=== PATIENT | male | born 1970 | race Caucasian/White ===

== ENCOUNTER 2017-08-05 05:09 | Emergency (ER) | payer MEDICAID ==
[~2017-08-05] VITALS: Ht 188 cm; Wt 113.6 kg
[~2017-08-05 05:09] MED LIST: CLON2TAB11 PO; DAPT500V6 IV; DIVA500T2 PO; DOCU100C23 PO; QUET-1 PO; TRAZ-146 PO
[2017-08-05 05:15] VITALS: BP 116/65
== END 2017-08-05 06:00 | disposition left against medical advice (07) ==
LOC: ER 05:10
DX: G89.29 Other chronic pain (principal); M54.5 Low back pain; G43.909 Migraine, unspecified, not intractable, without status migrainosus; F12.10 Cannabis abuse, uncomplicated; Z87.442 Personal history of urinary calculi; Z98.890 Other specified postprocedural states; Z88.6 Allergy status to analgesic agent; Z79.899 Other long term (current) drug therapy
CPT/HCPCS: 80053; 99283

== ENCOUNTER 2019-11-17 22:58 | Emergency (ER) | payer MEDICAID ==
[~2019-11-17] VITALS: Ht 188 cm; Wt 100.0 kg
[~2019-11-17 22:58] MED LIST changes: +DOCU-273 PO; -DOCU100C23 PO; -TRAZ-146 PO; +TRAZ-256 PO
[2019-11-17 23:00] VITALS: BP 126/75
[2019-11-17] MEDS ORDERED: LIDOcaine 5% patch TP SCH (23:30)
[2019-11-17] MEDS ORDERED: acetaminophen w/codeine (30MG) #3 tablet PO ONE (23:30)
[2019-11-17] MEDS ORDERED: BUPIVAcaine/PF 7.5mg/ml (0.75%) 10ml vial IJ ONE (23:30)
== END 2019-11-17 23:46 | disposition left against medical advice (07) ==
LOC: ER 22:58
DX: M13.862 Other specified arthritis, left knee (principal); M13.861 Other specified arthritis, right knee; G43.909 Migraine, unspecified, not intractable, without status migrainosus; G89.29 Other chronic pain; F41.9 Anxiety disorder, unspecified; F31.9 Bipolar disorder, unspecified; F12.90 Cannabis use, unspecified, uncomplicated; F20.9 Schizophrenia, unspecified; Z98.890 Other specified postprocedural states; Z86.69 Personal history of other diseases of the nervous system and sense organs; Z72.89 Other problems related to lifestyle; Z88.8 Allergy status to other drugs, medicaments and biological substances; Z79.899 Other long term (current) drug therapy
CPT/HCPCS: 99282